=== PATIENT | male | born 1945 | race Caucasian/White ===

== ENCOUNTER 2022-07-28 09:51 | Emergency (ER) | payer OTHER ==
[2022-07-28 10:31] VITALS: BP 118/70
--- NOTE | 2022-07-28 11:32 | ED Physician Documentation ---
History of Present Illness - Stated complaint Stated Complaint: INFECTION RT ARM - Chief complaint Chief Complaint: Wound - Additonal information Additional information: 77-year-old male presents to the emergency department for evaluation of concerns right forearm infection. He underwent a scalpel incision and biopsy Monday the with his quality assurance director. He is awaiting biopsy results. Yesterday evening he noticed progressive swelling and erythema. No drainage. No redness. No red streaking. Does have a history of previous cellulitis. He is on Eliquis and reports poor kidney function. Review of Systems Constitutional: denies: Fever Cardiac: denies: Chest pain / pressure, Palpitations Respiratory: denies: Dyspnea, Cough Skin: reports: Lesions Musculoskeletal: reports: Reviewed and negative Neurologic: reports: Reviewed and negative PD PAST MEDICAL HISTORY - Present Medications Home Medications: Ambulatory Orders Medication Instructions Recorded Confirmed cephALEXin [Keflex] 500 mg PO Q8H #21 cap 07/28/22 - Allergies Allergies/Adverse Reactions: Allergies Allergy/AdvReac Type Severity Reaction Status Date / Time No Known Drug Allergies Allergy Verified 07/28/22 10:31 PD ED PE EXPANDED - General General: Alert, No acute distress, Well developed/nourished - Extremities Extremities: Right forearm (2 x 2 cm area with noted open skin at biopsy site. Surrounding erythema and mild induration measuring 3 x 4 cm. Serous drainage. Mild tenderness. No lymphangitis.) Results - Vitals Vitals: Vital Signs - 24 hr 07/28/22 10:23 Temperature 36.2 C L Heart Rate 96 Respiratory 14 Rate Blood Pressure 118/70 O2 Saturation 96 Oxygen O2 Source Room air - Labs Labs: Laboratory Tests 07/28/22 11:38 Sodium 130 L Potassium 5.0 Chloride 96 L Carbon Dioxide 24 Anion Gap 10.0 BUN 60 H Creatinine 2.2 H Estimated GFR (MDRD) 29 L Glucose 90 Calcium 10.5 H PD Medical Decision Making - ED course Complexity details: reviewed results, re-evaluated patient, considered differential, d/w patient ED course: 77-year-old male presents emergency department for evaluation of right forearm infection at the site where he had a scalpel/excision biopsy completed on the . He does have surrounding erythema and induration consistent with cellulitis. No lymphangitis. No fevers. Patient is requesting we recheck his kidney function as he is often had medications adjusted for that. BMP completed today in the emergency department shows a sodium of 130 which when discussed with the patient appears to be a chronic finding given that he is on diuretics. He was unsure what his baseline creatinine was but it is 2 today with a GFR of 29. He did describe to me a history of chronic kidney disease and I suspect that this is chronic though I cannot confirm. As such however we will renally adjust his Keflex to 500 mg 3 times a day for the next week. Patient is advised to follow closely with his dermatology team. He is also advised to follow his hyponatremia and chronic kidney disease closely with his primary care providers. The usual emergent return precautions were discussed for concerns of worsening infection. Departure - Departure Disposition: 01 Home, Self Care Clinical Impression: Right forearm cellulitis, CKD (chronic kidney disease) stage 4, GFR 15-29 ml/min, Hyponatremia Condition: Stable Record reviewed to determine appropriate education?: Yes Instructions: ED Infec Skin Cellulitis Prescriptions: cephALEXin [Keflex] 500 mg PO Q8H #21 cap Comments: Aman you came to the emergency department today because you have developed some redness around your recent skin biopsy site that is suggestive of a bacterial skin infection or cellulitis. I have started you on an antibiotic called Keflex. You will take this 3 times a day for the next week. This is being renally adjusted. Your chemistry panel today shows some mild hyponatremia with a sodium of 130 which I suspect is common for you as you appear to be on diuretics. Your kidney function today shows a GFR or glomerular filtration rate of 29. This suggest moderate to severe kidney disease. I encourage you to discuss these values with your primary care provider. Please call your quality assurance director to discuss this ED visit. If you find you are having increasing redness, swelling drainage, fevers or any red streaking despite 48 to 72 hours of antibiotics then please return immediately to the ER for a second evaluation.
[2022-07-28] MEDS ORDERED: cephALEXin 250 MG CAPSULE PO STA (12:00)
[2022-07-28 12:08] LABS: CALCIUM 10.5 mg/dL (8.5-10.3); CREATININE 2.2 mg/dL (0.6-1.2)
== END 2022-07-28 12:26 | disposition home or self-care (01) ==
LOC: ED 09:51
DX: L03.113 Cellulitis of right upper limb (principal); E87.1 Hypo-osmolality and hyponatremia; N18.4 Chronic kidney disease, stage 4 (severe); Z79.01 Long term (current) use of anticoagulants
CPT/HCPCS: 36415; 80048; 99283; A9270